=== PATIENT | female | born 1990 | race Caucasian/White ===

== ENCOUNTER 2023-01-28 22:34 | Emergency (ER) | payer SELFPAY ==
[~2023-01-28] VITALS: Ht 162.6 cm; Wt 220.0 kg
[2023-01-29 08:16] VITALS: BP 128/77
== END 2023-01-29 08:31 | disposition home or self-care (01) | DRG 605 ==
LOC: ED 22:34
DX: S80.211A Abrasion, right knee, initial encounter (principal); S90.511A Abrasion, right ankle, initial encounter; F10.20 Alcohol dependence, uncomplicated; X58.XXXA Exposure to other specified factors, initial encounter